=== PATIENT | male | born 1995 | race Hispanic/Latino ===

== ENCOUNTER 2019-08-06 22:21 | Emergency (ER) | payer SELFPAY ==
[2019-08-06] MEDS ORDERED: CEPHALEXIN 500 MG CAPSULE ONE (23:37)
[2019-08-06] MEDS ORDERED: TETANUS/DIPHTHERIA TOXOID [ADULT] 0.5 ML VIAL IM ONE (23:38)
[2019-08-07] MEDS ORDERED: KETOROLAC TROMETHAMINE 60 MG/2 ML VIAL ONE (01:39)
[2019-08-07] MEDS ORDERED: CYCLOBENZAPRINE HCL 10 MG TABLET ONE (01:39)
== END 2019-08-07 01:53 | disposition home or self-care (01) ==
LOC: EDH 22:21
DX: S71.112A Laceration without foreign body, left thigh, initial encounter (principal); S00.83XA Contusion of other part of head, initial encounter; S80.12XA Contusion of left lower leg, initial encounter; S80.11XA Contusion of right lower leg, initial encounter; S40.021A Contusion of right upper arm, initial encounter; S30.0XXA Contusion of lower back and pelvis, initial encounter; S20.229A Contusion of unspecified back wall of thorax, initial encounter; Y04.2XXA Assault by strike against or bumped into by another person, initial encounter; Y93.89 Activity, other specified; Y92.89 Other specified places as the place of occurrence of the external cause; Y99.8 Other external cause status
CPT/HCPCS: 70450; 70486; 71101; 73060; 90471; 90714; 96372; 99284; J1885